=== PATIENT | female | born 1955 | race Caucasian/White ===

== ENCOUNTER 2023-07-27 08:55 | Day surgery (SDC) | payer MEDICARE, MEDICAID ==
[2023-07-14 10:48] VITALS: BP 121/62
[~2023-07-27] VITALS: Ht 167.6 cm; Wt 85.9 kg
[~2023-07-27 08:55] MED LIST: AMOXICILLIN500 MG PO; ATORVASTATIN CA20 MG PO; BUPROPION HCL150 M2 PO; BUSPIRONE HCL10 MG PO; CLINDAMYCIN HC300 MG PO; FERROUS SULFAT325 M2 PO; LEVOTHYROXINE88 MC1 PO; LOPERAMIDE2 MG PO; METFORMIN HCL1000 MG PO; NEURONTIN300 MG PO; NITROFURANTOIN100 M1 PO; OLOPATADINE HCL5 ML OP; OMEPRAZOLE20 MG PO; ONDANSETRON ODT8 MG PO; OXYBUTYNIN CHLOR5 MG PO; ROPINIROLE HCL0.5 MG PO; TIZANIDINE HCL4 M1 PO; TRAMADOL HCL50 MG PO; TYLENOL325 MG PO
[2023-07-27 09:20] VITALS: BP 124/52
[2023-07-27] MEDS ORDERED: XARELTO10 MG PO (12:37)
[2023-07-27] MEDS ORDERED: OXYCODONE HCL5 MG PO (12:37)
[2023-07-27] MEDS ORDERED: ACETAMINOPHEN500 MG PO (12:38)
[2023-07-27] MEDS ORDERED: GABAPENTIN300 MG PO (12:38)
[2023-07-27] MEDS ORDERED: CEFUROXIME500 MG PO (12:39)
[2023-07-27 14:00] VITALS: BP 130/50
[2023-07-27 15:07] VITALS: BP 123/57
[2023-07-27 16:40] VITALS: BP 123/47
--- NOTE | 2023-07-31 07:56 | OR ---
[facility] [address] [place], [place] [address] Signed DATE OF OPERATION: 07/27/2023 SURGEON: Meena Latif MD PREOPERATIVE DIAGNOSIS: Severe degenerative joint disease, right knee. POSTOPERATIVE DIAGNOSIS: Severe degenerative joint disease, right knee. PROCEDURE PERFORMED: Right total knee arthroplasty with Pj. COMPETITIVE INTELLIGENCE MANAGER: Mariam Winkler PA-C. Mariam was present and critical for all portions of procedure. ANESTHESIA: Spinal. BLOOD LOSS: 175 mL. TOURNIQUET TIME: Zero. IMPLANTS: Redd Triathlon size 4 femur, 3 tibia, 9 mm polyethylene, and 32 mm patella. BRIEF HISTORY: Isatu is a 67-year-old female with progressive worsening of osteoarthritis and a significantly valgus knee. Risks and benefits of operative treatment discussed with her and she elected to proceed. DESCRIPTION OF PROCEDURE: Once consent was obtained, she was taken to the operating room after adequate anesthesia. She was placed on operating table. All downside pressure points were well padded. The right leg was prepped and draped in a standard sterile fashion and the knee was approached through standard anterior midline incision, carried through skin and subcutaneous tissue. The low midvastus arthrotomy was performed and the MCL was Electronically Signed By: MEENA LATIF MD 07/31/23 0756 PATIENT NAME: ISATU CASTELLANOS OPERATIVE REPORT DATE OF : 53 REPORT #: [id number] PHYSICIAN: MEENA LATIF MD PCP: SHLOMO ROSEN MD REPORT IS CONFIDENTIAL AND NOT TO BE RELEASED WITHOUT AUTHORIZATION [facility] [address] [place], [place] [address] Signed elevated to the mid medial portion. The infrapatellar fat pad was excised. There was a large loose body in the anterior portion of the knee measuring about 3.5 cm wide. This was removed. The anterior horns of menisci were transected. The ACL was transected. PCL was found to be intact. The navigation computer arrays were placed in the medial femoral condyle and the proximal tibia. The leg was then registered with the computer, followed by the fine anatomic points of the knee. The ligamentous laxity was then assessed and some minor adjustments were made to the position of the components. Once this was completed, the robot was brought in and the four straight cuts followed by the two angled cuts were made with care taken to protect the patellar tendon and MCL. The bony remnants were removed as were any meniscal tissue. There was another large loose body in the posterior lateral aspect of the knee. Posterior osteophytes removed off the femur. Small osteophytes removed off the posterior lateral tibia as well. The trials were then positioned, knee was taken from 0-125 degrees with good motion and stability. The patella was cut, sized, and drilled for a 32 mm patella. It tracked well. The distal femoral drill holes were finished, followed by the keel punch and drilled for the proximal tibia. Her bone was then of decent shape, so we elected to go with a non-cemented prosthesis. The tibia was impacted into position first followed by the polyethylene. The femur was then impacted into position. The knee was extended and nicely loaded. The patella was clamped into position. The clamp was removed. Again, patellar alignment was adjusted and found to be good. The periarticular soft tissues were injected with 80 mL of ropivacaine and Toradol mixture. The knee was washed out with one bottle of Surgiphor followed by normal saline. The On-Q pain pump was then percutaneously placed into the adductor canal from the suprapatellar pouch. The arthrotomy was then closed using a combination of #2 FiberWire and #2 Stratafix, 0 Stratafix for the subcutaneous tissue and katherine for the skin. The wound was dressed with an Acticoat-7 dressing, ABD, and Jose Juan wrap. She tolerated the procedure well. All sponge, needle, and instrument counts were correct. Meena Latif MD /MODL /[id number] Electronically Signed By: MEENA LATIF MD 07/31/23 0756 PATIENT NAME: ISATU CASTELLANOS OPERATIVE REPORT DATE OF : 53 REPORT #: [id number] PHYSICIAN: MEENA LATIF MD PCP: SHLOMO ROSEN MD REPORT IS CONFIDENTIAL AND NOT TO BE RELEASED WITHOUT AUTHORIZATION [facility] [address] [place] [address] [place] [address] Signed Copies: ~ Electronically Signed By: MEENA LATIF MD 07/31/23 0756 PATIENT NAME: ISATU CASTELLANOS OPERATIVE REPORT DATE OF : 53 REPORT #: [id number] PHYSICIAN: MEENA LATIF MD PCP: SHLOMO ROSEN MD REPORT IS CONFIDENTIAL AND NOT TO BE RELEASED WITHOUT AUTHORIZATION
== END 2023-07-27 17:15 | disposition home or self-care (01) ==
LOC: DS 08:55
PROVIDERS: ATTEND Specialist
PROC: 8E0YXBZ Computer Assisted Procedure of Lower Extremity (ICD-10-PCS; 2023-07-27)
PROC: 3E0T3BZ Introduction of Anesthetic Agent into Peripheral Nerves and Plexi, Percutaneous Approach (ICD-10-PCS; 2023-07-27)
PROC: 0SRC0JZ Replacement of Right Knee Joint with Synthetic Substitute, Open Approach (ICD-10-PCS; principal; 2023-07-27 11:05)
DX: M17.2 Bilateral post-traumatic osteoarthritis of knee (principal); N18.30 Chronic kidney disease, stage 3 unspecified; F32.A Depression, unspecified; F41.9 Anxiety disorder, unspecified; E11.22 Type 2 diabetes mellitus with diabetic chronic kidney disease; I12.9 Hypertensive chronic kidney disease with stage 1 through stage 4 chronic kidney disease, or unspecified chronic kidney disease
CPT/HCPCS: 01400; 64447; 64450; 76942; 93005; 93010; 97161; A9270; C1713; C1776; J0131; J0690; J1100; J1170; J1885; J2001; J2250; J2405; J2704; J2795; J3010; J7121